=== PATIENT | male | born 1990 | race African-American/Black ===

== ENCOUNTER 2019-01-15 11:15 | Emergency (ER) | payer BC, MEDICAID ==
[~2019-01-15] VITALS: Ht 185.4 cm; Wt 65.5 kg
[2019-01-15 11:18] VITALS: BP 128/80
== END 2019-01-15 11:54 | disposition home or self-care (01) ==
LOC: ED 11:48
DX: L03.113 Cellulitis of right upper limb (principal); L03.312 Cellulitis of back [any part except buttock and flank]; F17.200 Nicotine dependence, unspecified, uncomplicated
CPT/HCPCS: 99283